=== PATIENT | female | born 1940 | race Caucasian/White ===

== ENCOUNTER 2018-08-19 11:58 | Inpatient (IN) | payer MEDICARE | END 2018-08-21 17:00 | disposition home or self-care (01) | LOC: ER 11:58 → TELE 11:59 → WEST WING 15:01 | DX: A41.9 Sepsis, unspecified organism (principal); E44.1 Mild protein-calorie malnutrition; K57.32 Diverticulitis of large intestine without perforation or abscess without bleeding ==